=== PATIENT | female | born 1965 | race American Indian/Alaskan Native ===

== ENCOUNTER 2018-04-15 10:24 | Outpatient (CLI) | payer OTHER ==
--- NOTE | 2018-04-15 11:50 | XRay Report ---
AP AND LATERAL LUMBOSACRAL SPINE: History: Low back pain There is normal bone mineralization. No evidence for fracture, malalignment or bony lesion. Mild degenerative disc disease and facet arthropathy are identified at L4-5 and L5-S1. The sacrum and SI joints are unremarkable. IMPRESSION: Mild lumbar spondylosis as described. No evidence for acute injury.
== END 2018-04-15 10:25 | disposition home or self-care (01) ==
LOC: XRAY 10:24
PROVIDERS: ATTEND Internal Medicine
DX: M47.896 Other spondylosis, lumbar region (principal); I11.0 Hypertensive heart disease with heart failure; I50.9 Heart failure, unspecified
CPT/HCPCS: 72100